=== PATIENT | female | born 1940 | race Caucasian/White ===

== ENCOUNTER 2021-11-14 18:09 | Emergency (ER) | payer MEDICARE, OTHER ==
[2021-11-14] MEDS ORDERED: Lidocaine 1% 5 ML VIAL INJECT ONE (19:19)
[2021-11-14] MEDS ORDERED: Bacitracin Oint 1 GM U/D Packet TOP ONE (19:19)
== END 2021-11-14 20:19 | disposition home or self-care (01) ==
LOC: JP.ED 18:09
DX: S61.212A Laceration without foreign body of right middle finger without damage to nail, initial encounter (principal); Z79.899 Other long term (current) drug therapy; W23.0XXA Caught, crushed, jammed, or pinched between moving objects, initial encounter
CPT/HCPCS: 12002; 12042; 73140-F7; 99281; 99283

== ENCOUNTER 2024-11-15 12:09 | Emergency (ER) | payer MEDICARE, OTHER | END 2024-11-15 15:41 | disposition home or self-care (01) | LOC: JP.ED 12:09 | DX: M25.561 Pain in right knee (principal); I10 Essential (primary) hypertension; Z79.899 Other long term (current) drug therapy; Z87.891 Personal history of nicotine dependence | CPT/HCPCS: 73562-26-RT; 73562-RT; 99283 ==